=== PATIENT | female | born 1960 | race Caucasian/White ===

== ENCOUNTER 2017-08-31 09:47 | Outpatient (RCR) | payer OTHER, SELFPAY ==
[2017-08-23 01:23] VITALS: BP 139/85; PULSE 95; RESP 18; TEMP 37; BMI 29.1
[2017-08-31 11:08] VITALS: BP 125/69; PULSE 100; RESP 16; TEMP 37.6; BMI 29.1
--- NOTE | 2017-08-31 23:42 | PCM.WC.PN ---
Type of Wound Date of Service: 08/31/17 Chief Complaint: Nonhealing ulcer left lateral leg. History of Wound: 57 year old woman presents with a nonhealing ulcer left lateral leg. She denies any trauma. She denies any fever. She denies any recent infection. She does have a history of occasional swelling in her lower extremities. She had a wound culture done at her visit on 08/17/17. It showed MRSE and she was started on Levaquin. She also has complaints of some dermatitis around the ulceration. Just anterior to the ulceration is another area of skin breakdown that could be related to the dermatitis or from the dressing itself. Progress of Wound: Slightly improved. - Physical Exam Vital Signs Temp Pulse Resp BP 99.6 F H 100 16 125/69 H 08/31/17 11:08 08/31/17 11:08 08/31/17 11:08 08/31/17 11:08 Wound Measurements and Assessment REILLY - Nurse 1 - General Ulcer Measurement Start: 08/31/17 11:07 Freq: Status: Active Protocol: Activity Type Activity Date Activity User E-Sign Co-Sign Detail Recorded Client Recorded Date Recorded By Document 08/31/17 11:08 [facility] [id number] 08/31/17 11:22 [facility] 08/31/17 11:08 Wound Center Nurse 1 [Ulcer Assessment Protocol: WC.WD.LOC] #3- LT BANKS -Combined with other wound No -Current Size (cm) - Length 0.5 -Current Size (cm) - Width 0.8 -Current Size (cm) - Depth 0.1 -Total Square Cm 0.40 -Date of Last Picture (Recall this 08/31/17 field) -Photo Taken Yes -Epithelialization None Present -Tunneling No -Undermining/Tunneling No -Exudate Amt None Present (0 %) -Wound Margin Distinct, Outline Attached -Granulation Amt Large (67-100%) -Granulation Quality Red -Slough/Fibrin No -Necrosis Amt None Present (0 %) -Structure Exposed None/Limited to Skin Breakdown -Texture (Adelina-wound Skin Appearance) Scarring -Moisture (Adelina-wound Skin Appearance Dry/Scaly ) -Color (Adelina-wound Skin Appearance) Assessed -Temperature (Adelina-wound Skin No Abnormality Appearance) (Pt Warm) -Tenderness on Palpation (Adelina-wound Yes Skin Appearance) -Ulcer Cleansing Rinsed/ Irrigated with Saline -Foul Odor after Cleansing No -Anesthetic Used 4% Lidocaine Solution #1- LT LATERAL BANKS -Combined with other wound No -Current Size (cm) - Length 0.6 -Current Size (cm) - Width 0.6 -Current Size (cm) - Depth 0.1 -Total Square Cm 0.36 -Epithelialization Medium 34-66% -Tunneling No -Undermining/Tunneling No -Exudate Amt Small (1-33%) -Exudate Type Serosanguineous -Wound Margin Distinct, Outline Attached -Granulation Amt Large (67-100%) -Granulation Quality Red -Slough/Fibrin No -Structure Exposed N/A -Texture (Adelina-wound Skin Appearance) Scarring -Moisture (Adelina-wound Skin Appearance Maceration ) -Color (Adelina-wound Skin Appearance) No Abnormality -Temperature (Adelina-wound Skin No Abnormality Appearance) (Pt Warm) -Tenderness on Palpation (Adelina-wound No Skin Appearance) -Ulcer Cleansing Rinsed/ Irrigated with Saline -Foul Odor after Cleansing No -Anesthetic Used 4% Lidocaine Solution [Edema Assessment] -Lower Limb Edema Present Yes -Left Calf (cm) 36.9 -Left Ankle (cm) 25.5 WC - Nurse 2 - General Ulcer CM Notes Start: 08/31/17 11:07 Freq: Status: Active Protocol: Activity Type Activity Date Activity User E-Sign Co-Sign Detail Recorded Client Recorded Date Recorded By Document 08/31/17 11:44 JOHNNA [id number] 08/31/17 11:47 JOHNNA 08/31/17 11:44 Wound Center Nurse 2 [Procedure/Treatment] #3- LT BANKS -Time 11:46 -Correct Patient Yes -Correct Side, Site, Position Yes -Correct Procedure Yes -Procedure Performed Yes -Type of Procedure Debridement -Clinical Debridement Subcutaneous -Post Debridement Size (cm) - Length 0.6 -Post Debridement Size (cm) - Width 0.8 -Post Debridement Size (cm) - Depth 0.1 -Total Square Cm 0.48 -Wound/Ulcer Outcome Not Healed -Ulcer Cleansing Rinsed/ Irrigated with Saline -Foul Odor after Cleansing No -Bioengineered Tissue No -Cetacaine [place] No -Bleeding Controlled with Pressure -Treatment Response Procedure Tolerated Well #1- LT LATERAL BANKS -Time 11:46 -Correct Patient Yes -Correct Side, Site, Position Yes -Correct Procedure Yes -Procedure Performed Yes -Type of Procedure Debridement -Clinical Debridement Subcutaneous -Post Debridement Size (cm) - Length 0.7 -Post Debridement Size (cm) - Width 0.6 -Post Debridement Size (cm) - Depth 0.1 -Total Square Cm 0.42 -Wound/Ulcer Outcome Not Healed -Ulcer Cleansing Rinsed/ Irrigated with Saline -Foul Odor after Cleansing No -Bioengineered Tissue No -Cetacaine [place] No -Bleeding Controlled with Pressure -Treatment Response Procedure Tolerated Well [See Physician Procedure note for Specifics] Pain Scale: 0-10 Numeric [Pain] -Is Patient Pain Free? Yes Debridement Note Post-Debridement Measurements/Treatment WC - Nurse 2 - General Ulcer CM Notes Start: 08/31/17 11:07 Freq: Status: Active Protocol: Activity Type Activity Date Activity User E-Sign Co-Sign Detail Recorded Client Recorded Date Recorded By Document 08/31/17 11:44 [id number] 08/31/17 11:47 08/31/17 11:44 Wound Center Nurse 2 #3- LT BANKS -Time 11:46 -Correct Patient Yes -Correct Side, Site, Position Yes -Correct Procedure Yes -Procedure Performed Yes -Type of Procedure Debridement -Clinical Debridement Subcutaneous -Post Debridement Size (cm) - Length 0.6 -Post Debridement Size (cm) - Width 0.8 -Post Debridement Size (cm) - Depth 0.1 -Total Square Cm 0.48 -Wound/Ulcer Outcome Not Healed -Ulcer Cleansing Rinsed/ Irrigated with Saline -Foul Odor after Cleansing No -Bioengineered Tissue No -Cetacaine [place] No -Bleeding Controlled with Pressure -Treatment Response Procedure Tolerated Well #1- LT LATERAL BANKS -Time 11:46 -Correct Patient Yes -Correct Side, Site, Position Yes -Correct Procedure Yes -Procedure Performed Yes -Type of Procedure Debridement -Clinical Debridement Subcutaneous -Post Debridement Size (cm) - Length 0.7 -Post Debridement Size (cm) - Width 0.6 -Post Debridement Size (cm) - Depth 0.1 -Total Square Cm 0.42 -Wound/Ulcer Outcome Not Healed -Ulcer Cleansing Rinsed/ Irrigated with Saline -Foul Odor after Cleansing No -Bioengineered Tissue No -Cetacaine [place] No -Bleeding Controlled with Pressure -Treatment Response Procedure Tolerated Well Pain Scale: 0-10 Numeric Is Patient Pain Free? Yes Wound debrided: #1 Left lateral leg. Laterality: Left Wound Grade/Stage: 2. Type of Debridement: Excisional debridement Anesthesia Used: 4% Lidocaine Solution Depth: Down to and including healthy tissue, in the subcutaneous layer Percentage of wound debrided: 100 Instrument Used: 5mm curette Tissue Removed: subcutaneous tissue. Severity: Fat Layer Exposed Amount of bleeding with debridement: Mild Bleeding Controlled with: Pressure Patient tolerated procedure well - Additional Wound Wound debrided: #3 Left anterior leg. Laterality: Left Wound Grade/Stage: 2. Type of Debridement: Excisional debridement Anesthesia Used: 4% Lidocaine Solution Depth: Down to and including healthy tissue, in the subcutaneous layer Percentage of wound debrided: 100 Instrument Used: 5mm curette Tissue Removed: subcutaneous tissue. Severity: Fat Layer Exposed Amount of bleeding with debridement: Mild Bleeding Controlled with: Pressure Patient tolerated procedure: Patient tolerated procedure well Assessment/Plan Assessment: 1. Nonhealing ulcer left lateral leg. 2. Nonhealing ulcer left anterior leg. Plan: Continue Silver dressing changes daily. Is having some periwound dermatitis and will write a script for some Benadryl. Has a new onset ulceration on the anterior aspect. Could be related to the dressing. Continue tubigrip to help with the swelling. Xray was normal. A wound culture was done at her last visit on 08/17/17 and it showed MRSE. She was placed on Levaquin. Anticipate increased metabolic demands from the ulcer. Encourage nutritional supplementation with protein to help the healing process. She does have clinical swelling suggestive of venous insufficiency. After healing has occurred and with compression for 6 months, she can be evaluated for possible laser ablation. At present will check an arterial doppler study and a venous doppler study to look for any vascular issues. Followup 3 weeks.
--- NOTE | 2017-09-10 09:56 | VDLE_ITS ---
Reason For Study: Swelling and ulceration RIGHT LEFT GSV is normal. GSV is normal. CFV is compressible, spontaneous, phasic, CFV is compressible, spontaneous, phasic, competent and demonstrates normal competent, and demonstrates normal augmentation. augmentation. FV is compressible, spontaneous, phasic, FV is compressible, spontaneous, phasic, competent and demonstrates normal competent and demonstrates normal augmentation. augmentation. POP V is compressible, spontaneous, phasic, POP V is compressible, spontaneous, phasic, competent and demonstrates normal competent and demonstrates normal augmentation. augmentation. T/P Trunk is compressible. T/P Trunk is compressible. PTV is compressible. PTV is compressible. RT PerV is compressible. LT PerV is compressible. SFJ s competent SFJ is competent GSV is INCOMPETENT with reflux greater GSV is INCOMPETENT with reflux greater than .5 sec and diameter of .30 x .28 cm than .5 sec and diameter of .38 x .38 cm SSV is INCOMPETENT with reflux greater SSV is competent. than .5 sec and diameter of .30 x .28 cm. Procedure Exam performed in department. A preliminary report was called and/or faxed to [facility]. Interpretation Summary Deep veins of the lower extremities are bilaterally patent and compressible segmentally. There is no evidence of deep vein thrombosis on either side. Valvular competence appears intact within the proximal deep venous systems bilaterally. The greater saphenous veins appear bilaterally patent and compressible segmentally. Sapheno-femoral junctions are bilaterally competent . Segmental valvular incompetence is noted within the greater saphenous veins bilaterally. The right small saphenous vein is patent and incompetent. The left small saphenous vein is patent and competent. Ordering Physician: Chase Gray Performed By: Marybeth Canchola RVT
--- NOTE | 2017-09-13 12:28 | LEAS_ITS ---
Arterial Study - Arterial Study Arterial Study: This is a 57-year-old female with hypertension who presents with a left lower extremity ulceration. Suspecting the presence of atherosclerotic peripheral arterial occlusive disease, the patient was brought to the noninvasive vascular laboratory at this time for the purpose of bilateral noninvasive lower extremity arterial assessment. Doppler signal assessment was used to evaluate the pulses at ankle level bilaterally. The posterior tibial and dorsalis pedis pulses were triphasic bilaterally. Segmental limb pressures were obtained at ankle level bilaterally. The right ankle pressure, as determined the posterior tibial pulse, was measured at 139 mmHg. The right ankle pressure, as determined by dorsalis pedis pulse, was measured at 135 mmHg. The left ankle pressure, as determined the posterior tibial pulse, was measured at 155 mmHg. The left ankle pressure, as determined by dorsalis pedis pulse, was measured at 136 mmHg. Pulse-volume recordings were obtained bilaterally and segmentally. Waveform amplitudes appeared to be satisfactory at all levels bilaterally, including low thigh, calf, ankle, and digital levels. Resting ankle-brachial indices were calculated bilaterally. The resting right ankle-brachial index was calculated to be 1.03. The resting left ankle- brachial index was calculated to be 1.15. Impression: Based upon the findings of this resting noninvasive lower extremity arterial study, there is no evidence of significant atherosclerotic peripheral arterial occlusive disease in the lower extremities bilaterally. Triphasic waveforms are noted at ankle level bilaterally. Resting ankle-brachial indices were bilaterally normal. In summary, this represents a normal resting noninvasive lower extremity arterial study bilaterally.
== END 2017-09-20 23:59 ==
LOC: WC 09:47
PROVIDERS: Family Provider Nurse Practitioner; PCP Nurse Practitioner; Visit Provider Surgery
DX: L97.822 Non-pressure chronic ulcer of other part of left lower leg with fat layer exposed (principal); L30.9 Dermatitis, unspecified; M79.89 Other specified soft tissue disorders; I83.028 Varicose veins of left lower extremity with ulcer other part of lower leg; I10 Essential (primary) hypertension; R60.0 Localized edema; I83.891 Varicose veins of right lower extremity with other complications
CPT/HCPCS: 11042; 93923; 93970

== ENCOUNTER 2017-10-20 08:00 | Outpatient (RCR) | payer OTHER, SELFPAY ==
[2017-09-21 01:29] VITALS: BP 125/69; PULSE 100; RESP 16; TEMP 37.6; BMI 29.1
[2017-09-22 09:43] VITALS: BP 122/74; PULSE 131; RESP 18; TEMP 37.4; BMI 29.1
--- NOTE | 2017-09-22 18:20 | PCM.WC.PN ---
Type of Wound Date of Service: 09/22/17 Chief Complaint: Nonhealing ulcers left leg. History of Wound: 57 year old woman presents with a nonhealing ulcer left lateral leg. She denies any trauma. She denies any fever. She denies any recent infection. She does have a history of occasional swelling in her lower extremities. She had a wound culture done at her visit on 08/17/17. It showed MRSE and she was started on Levaquin and has finished them. She has been using Silver dressing changes daily along with a tubigrip for compression. She had a LEAS study on 09/13/17 and it showed a normal resting noninvasive lower extremity arterial study bilaterally. Today she denies any fever. Her appetite is good. Progress of Wound: Healed. - Physical Exam Vital Signs Temp Pulse Resp BP 99.3 F H 131 H 18 122/74 H 09/22/17 09:43 09/22/17 09:43 09/22/17 09:43 09/22/17 09:43 General: Alert, Oriented x3 HEENT: PERRLA, EOMI Oral: Moist Mucosa Neck: Supple Lungs: Clear to auscultation Cardiovascular: Regular rate, Regular Rhythm Extremities: No clubbing, No cyanosis, Edema - mild edema in lower extremities., Peripheral Pulses Normal Skin: Ulcer/ Wound - the ulcers have healed. Wound Measurements and Assessment - Nurse 1 - General Ulcer Measurement Start: 09/22/17 09:43 Freq: Status: Active Protocol: Activity Type Activity Date Activity User E-Sign Co-Sign Detail Recorded Client Recorded Date Recorded By Document 09/22/17 09:43 JOHNNA [id number] 09/22/17 09:46 JOHNNA 09/22/17 09:43 Wound Center Nurse 1 [Ulcer Assessment Protocol: REILLY.WD.LOC] #3- LT BANKS -Combined with other wound No -Current Size (cm) - Length 0 -Current Size (cm) - Width 0 -Current Size (cm) - Depth 0 -Total Square Cm 0 -Photo Taken Yes #1- LT LATERAL BANKS -Combined with other wound No -Current Size (cm) - Length 0 -Current Size (cm) - Width 0 -Current Size (cm) - Depth 0 -Total Square Cm 0 -Photo Taken Yes [Edema Assessment] -Lower Limb Edema Present Yes -Left Calf (cm) 36.5 -Left Ankle (cm) 24.2 - Nurse 2 - General Ulcer CM Notes Start: 09/22/17 09:43 Freq: Status: Active Protocol: Activity Type Activity Date Activity User E-Sign Co-Sign Detail Recorded Client Recorded Date Recorded By Document 09/22/17 09:52 JOHNNA [id number] 09/22/17 09:57 09/22/17 09:52 Pain Scale: 0-10 Numeric [Pain] -Is Patient Pain Free? Yes Neurological: Cranial nerves II-XII grossly intact Psych/Mental Status: Normal Affect, Appropriate Debridement Note Post-Debridement Measurements/Treatment WC - Nurse 2 - General Ulcer CM Notes Start: 09/22/17 09:43 Freq: Status: Active Protocol: Activity Type Activity Date Activity User E-Sign Co-Sign Detail Recorded Client Recorded Date Recorded By Document 09/22/17 09:52 JOHNNA [id number] 09/22/17 09:57 09/22/17 09:52 Pain Scale: 0-10 Numeric Is Patient Pain Free? Yes Wound debrided: #1 Left lateral leg. Laterality: Left Wound Grade/Stage: 2. No debridement was completed today - The ulcer has healed. - Additional Wound Wound debrided: #3 Left anterior leg. Laterality: Left Wound Grade/Stage: 2. Patient tolerated procedure: - - No debridement was done today as the ulcer has healed. Assessment/Plan Assessment: 1. Ulcer left lateral leg, healed. 2. Ulcer left anterior leg, healed. 3. Venous insufficiency bilateral legs. Plan: The ulcers have healed. Will change the tubigrip to compression stockings because of her venous insufficiency. She can followup with Dr. Davis in 6 months for evaluation for possible laser ablation. A wound culture was done at her visit on 08/17/17 and it showed MRSE. She was placed on Levaquin and has finished them. She had an arterial doppler study on 09/13/17 which was normal. Followup on an as needed basis.
--- NOTE | 2017-09-23 23:02 | PN.PCM_ITS ---
Type of Wound Date of Service: 09/22/17 Chief Complaint: Nonhealing ulcers left leg. History of Wound: 57 year old woman presents with a nonhealing ulcer left lateral leg. She denies any trauma. She denies any fever. She denies any recent infection. She does have a history of occasional swelling in her lower extremities. She had a wound culture done at her visit on 08/17/17. It showed MRSE and she was started on Levaquin and has finished them. She has been using Silver dressing changes daily along with a tubigrip for compression. She had a LEAS study on 09/13/17 and it showed a normal resting noninvasive lower extremity arterial study bilaterally. Today she denies any fever. Her appetite is good. Progress of Wound: Healed. - Physical Exam Vital Signs Temp Pulse Resp BP 99.3 F H 131 H 18 122/74 H 09/22/17 09:43 09/22/17 09:43 09/22/17 09:43 09/22/17 09:43 General: Alert, Oriented x3 HEENT: PERRLA, EOMI Oral: Moist Mucosa Neck: Supple Lungs: Clear to auscultation Cardiovascular: Regular rate, Regular Rhythm Extremities: No clubbing, No cyanosis, Edema - mild edema in lower extremities. , Peripheral Pulses Normal Skin: Ulcer/ Wound - the ulcers have healed. Wound Measurements and Assessment - Nurse 1 - General Ulcer Measurement Start: 09/22/17 09:43 Freq: Status: Active Protocol: Activity Type Activity Date Activity User E-Sign Co-Sign Detail Recorded Client Recorded Date Recorded By Document 09/22/17 09:43 JOHNNA [id number] 09/22/17 09:46 JOHNNA 09/22/17 09:43 Wound Center Nurse 1 [Ulcer Assessment Protocol: REILLY.WD.LOC] #3- LT BANKS -Combined with other wound No -Current Size (cm) - Length 0 -Current Size (cm) - Width 0 -Current Size (cm) - Depth 0 -Total Square Cm 0 -Photo Taken Yes #1- LT LATERAL BANKS -Combined with other wound No -Current Size (cm) - Length 0 -Current Size (cm) - Width 0 -Current Size (cm) - Depth 0 -Total Square Cm 0 -Photo Taken Yes [Edema Assessment] -Lower Limb Edema Present Yes -Left Calf (cm) 36.5 -Left Ankle (cm) 24.2 - Nurse 2 - General Ulcer CM Notes Start: 09/22/17 09:43 Freq: Status: Active Protocol: Activity Type Activity Date Activity User E-Sign Co-Sign Detail Recorded Client Recorded Date Recorded By Document 09/22/17 09:52 JOHNNA [id number] 09/22/17 09:57 09/22/17 09:52 Pain Scale: 0-10 Numeric [Pain] -Is Patient Pain Free? Yes Neurological: Cranial nerves II-XII grossly intact Psych/Mental Status: Normal Affect, Appropriate Debridement Note Post-Debridement Measurements/Treatment WC - Nurse 2 - General Ulcer CM Notes Start: 09/22/17 09:43 Freq: Status: Active Protocol: Activity Type Activity Date Activity User E-Sign Co-Sign Detail Recorded Client Recorded Date Recorded By Document 09/22/17 09:52 JOHNNA [id number] 09/22/17 09:57 09/22/17 09:52 Pain Scale: 0-10 Numeric Is Patient Pain Free? Yes Wound debrided: #1 Left lateral leg. Laterality: Left Wound Grade/Stage: 2. No debridement was completed today - The ulcer has healed. - Additional Wound Wound debrided: #3 Left anterior leg. Laterality: Left Wound Grade/Stage: 2. Patient tolerated procedure: - - No debridement was done today as the ulcer has healed. Assessment/Plan Assessment: 1. Ulcer left lateral leg, healed. 2. Ulcer left anterior leg, healed. 3. Venous insufficiency bilateral legs. Plan: The ulcers have healed. Will change the tubigrip to compression stockings because of her venous insufficiency. She can followup with Dr. Davis in 6 months for evaluation for possible laser ablation. A wound culture was done at her visit on 08/17/17 and it showed MRSE. She was placed on Levaquin and has finished them. She had an arterial doppler study on 09/13/17 which was normal. Followup on an as needed basis.
[2017-10-20 08:15] VITALS: BP 115/71; PULSE 101; RESP 18; TEMP 36.9; BMI 29.1
--- NOTE | 2017-10-20 09:17 | PCM.WC.HP ---
(1) Venous insufficiency of both lower extremities Status: Chronic Current Visit: Yes Code(s): I87.2 - Venous insufficiency (chronic) (peripheral) (2) Leg pain, bilateral Status: Chronic Current Visit: Yes Code(s): M79.604 - Pain in right leg; M79.605 - Pain in left leg (3) Swelling of lower extremity Status: Chronic Current Visit: Yes Code(s): M79.89 - Other specified soft tissue disorders (4) Edema of leg Status: Chronic Current Visit: Yes Code(s): R60.0 - Localized edema (5) Hypertension Status: Chronic Current Visit: No Qualifiers: Hypertension type: essential hypertension Qualified Code(s): I10 - Essential (primary) hypertension Code(s): I10 - Essential (primary) hypertension (6) Benign breast disease Status: Chronic Current Visit: No Code(s): N64.9 - Disorder of breast, unspecified (7) Overweight (BMI 25.0-29.9) Status: Chronic Current Visit: No Code(s): E66.3 - Overweight History of Present Illness Date of Service: 10/20/17 Chief Complaint: Chronic venous insufficiency with pain, discomfort, swelling, and edema in the lower extremities bilaterally History of Wound: This is a 57-year-old female who initially presented with a traumatic wound on the left lateral calf. It was the result of a scratch from a dog. It occurred in June 2017. The patient was treated by conservative means, which include implementation of graduated compression stockings of 20-30 mmHg compression, knee-high length. Her wound was treated topically by the use of Aquacel silver. Her wound subsequently healed in early September 2017. During the course of her evaluation, the patient has had a battery of diagnostic studies. A noninvasive lower extremity arterial study performed on September 10, 2017, was normal, with triphasic waveforms at ankle level bilaterally and normal anklebrachial indices bilaterally. An x-ray of the left distal lower extremity was unremarkable. A wound culture on August 17, 2017, was positive for Staphylococcus epidermidis, and the patient was treated with a course of oral antibiotics for 8 days. The patient's venous duplex examination, performed on September 10, 2017, revealed incompetence of the right great saphenous vein, the right small saphenous vein, and the left great saphenous vein. Patient is referred for evaluation relative to her chronic venous disease. She sleeps on a flat mattress at night. She experiences she leads an active lifestyle. She complains of aching and discomfort in her lower extremities, particularly at the end of each day. Patient has no history of lower extremity thrombophlebitis. Past Medical History Past Medical History: Chronic Problems Venous insufficiency of both lower extremities (Chronic) Leg pain, bilateral (Chronic) Swelling of lower extremity (Chronic) Edema of leg (Chronic) Hypertension (Chronic) Benign breast disease (Chronic) Overweight (BMI 25.0-29.9) (Chronic) Past Medical History: The patient has a history of hypertension and benign breast disease. Her history is negative for myocardial infarction, congestive heart failure, cerebrovascular accident, diabetes mellitus, cancer, pulmonary disease, renal disease, hyperlipidemia, and thyroid disease. Surgical History: - - Patient has a history of hysterectomy in 1998. She is a Ab0. Allergies/Adverse Reactions: Allergies Sulfa (Sulfonamide Antibiotics) Allergy (Verified 04/15/15 22:30) Rash Home Medications: Ambulatory Orders Medication Instructions Recorded Flaxseed Oil 1,000 mg PO DAILY 08/17/17 Irbesartan [Avapro] 150 mg PO DAILY 08/17/17 - Family History Maternal - - Patient's father is 85 years of age and healthy. Patient's mother is 80 years of age with a history of schizophrenia and depression. Social History: The patient denies use of tobacco products. She consumes alcoholic beverages rarely. She is . 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 Lives: Spouse/ Significant Other Smoking Status: Never smoker Tobacco Use: Non-smoker Alcohol: Rare Drugs: None Review of Systems Constitutional: Denies: Chills, Fever, Weight Change Eyes: Denies: Pain, Vision Change HEENT: Denies: Difficulty Hearing, Difficulty Swallowing, Sinus Congestion Cardiovascular: Denies: Chest Pain, Palpitations Respiratory: Denies: Cough, Shortness of Breath Gastrointestinal: Denies: Diarrhea, Nausea, Vomiting Genitourinary: Denies: Dysuria, Hematuria Endocrine: Denies: Heat/ Cold Intolerance, Polydipsia, Polyuria Hematologic/ Lymphatic: Denies: Easy Bruising, Easy Bleeding - Physical Exam Vital Signs Temp Pulse Resp BP 98.4 F 101 H 18 115/71 10/20/17 08:15 10/20/17 08:15 01/30/18 08:15 10/20/17 08:15 General: Alert, Oriented x3, Cooperative, No apparent distress, Well developed, Well nourished HEENT: Atraumatic, PERRLA, EOMI, Normocephalic Oral: Moist Mucosa, No Gingival or Mucosal Lesions/ Ulcerations Neck: Supple, No JVD, Negative Carotid Bruits, Negative Hepatojugular Reflux, No Nodes, No Nuchal Rigidity, Trachea Midline Lungs: Clear to auscultation, Normal air movement, No rhonchi, No wheeze, No rales Cardiovascular: Regular rate, Regular Rhythm, Normal S1, Normal S2, No murmurs Abdomen: Soft, Non Tender, Non-Distended Extremities: No clubbing, No cyanosis, No edema, No Calf Tenderness, - - The wound on the left lateral calf for which the patient has been recently treated is now completely healed and epithelialized. There are a few scattered telangiectasias in the lower extremities bilaterally. There is no significant swelling or edema. Several ecchymotic areas are noted bilaterally, from admitted blunt trauma. Skin: No rashes, No breakdown Wound Measurements and Assessment WC - Nurse 1 - General Ulcer Measurement Start: 09/22/17 09:43 Freq: Status: Active Protocol: Activity Type Activity Date Activity User E-Sign Co-Sign Detail Recorded Client Recorded Date Recorded By Document 10/20/17 08:15 [id number] 10/20/17 08:17 10/20/17 08:15 Wound Center Nurse 1 [Edema Assessment] -Lower Limb Edema Present Yes -Right Calf (cm) 36.3 -Right Ankle (cm) 22.3 -Left Calf (cm) 36.8 -Left Ankle (cm) 23.2 - Nurse 2 - General Ulcer CM Notes Start: 09/22/17 09:43 Freq: Status: Active Protocol: Activity Type Activity Date Activity User E-Sign Co-Sign Detail Recorded Client Recorded Date Recorded By Document 10/20/17 08:59 DV [id number] 10/20/17 09:04 DV 10/20/17 08:59 Wound Center Nurse 2 [Procedure/Treatment] #4 Bilateral Edema -Time 09:01 -Correct Patient Yes -Procedure Performed No [See Physician Procedure note for Specifics] Pain Scale: 0-10 Numeric [Pain] -Is Patient Pain Free? Yes Musculoskeletal: No Muscle Wasting Neurological: Cranial nerves II-XII grossly intact, Neuro grossly intact Psych/Mental Status: Normal Affect, Appropriate, Alert and oriented to time, place, person, mood and affect Debridement Note Post-Debridement Measurements/Treatment WC - Nurse 2 - General Ulcer CM Notes Start: 09/22/17 09:43 Freq: Status: Active Protocol: Activity Type Activity Date Activity User E-Sign Co-Sign Detail Recorded Client Recorded Date Recorded By Document 09/22/17 09:52 [id number] 09/22/17 09:57 Document 10/20/17 08:59 DV [id number] 10/20/17 09:04 DV 09/22/17 10/20/17 09:52 08:59 Wound Center Nurse 2 #4 Bilateral Edema -Time 09:01 -Correct Patient Yes -Procedure Performed No Pain Scale: 0-10 Numeric Is Patient Pain Free? Yes Yes No debridement was completed today Assessment/Plan Active Problems Venous insufficiency of both lower extremities (Chronic) Leg pain, bilateral (Chronic) Swelling of lower extremity (Chronic) Edema of leg (Chronic) Assessment: This is a 57-year-old female who presents for evaluation relative to her chronic venous disease and associated symptoms. She leads an active lifestyle. She sleeps on a flat mattress at night. She complains of pain, discomfort, and swelling in her lower extremities at the end of each day. She has been recently wearing graduated compression stockings of 20-30 mmHg compression, knee-high length. The traumatic wound on her left lateral calf, for which the patient has been recently treated, is now completely healed. A venous duplex examination, recently performed, reveals evidence of chronic venous insufficiency in the superficial veins of the patient's lower extremities. Plan: We are to implement conservative treatment measures relative to the patient's chronic venous disease in her lower extremities. A lengthy discussion has been undertaken as to the appropriate measures to be employed. Patient is to elevate her legs as much as possible. Elevation is to be to heart level or higher. This is to be accomplished even during daytime hours, when possible. She is to avoid prolonged idle standing and sitting. Activity has been encouraged. Weight optimization has also been recommended. The use of anti-inflammatory medications has been advised, when necessary. The patient is to continue wearing graduated compression stockings of 20-30 mmHg compression, which she currently possesses. Patient will be reevaluated in approximately 3 months to determine her status, and to evaluate whether her symptoms have been controlled with the conservative measures employed. The patient is not a smoker. Influenza vaccine was not administered today. Patient weighs 175 pounds. She stands 5 feet 5 inches tall. Her BMI is 29.1, which places her in the overweight category. Weight loss has been recommended, and she has been advised to collaborate with her primary care physician in this regard.
--- NOTE | 2017-10-20 09:28 | HP.PCM_ITS ---
(1) Venous insufficiency of both lower extremities Status: Chronic Current Visit: Yes Code(s): I87.2 - Venous insufficiency ( chronic) (peripheral) (2) Leg pain, bilateral Status: Chronic Current Visit: Yes Code(s): M79.604 - Pain in right leg; M79.605 - Pain in left leg (3) Swelling of lower extremity Status: Chronic Current Visit: Yes Code(s): M79.89 - Other specified soft tissue disorders (4) Edema of leg Status: Chronic Current Visit: Yes Code(s): R60.0 - Localized edema (5) Hypertension Status: Chronic Current Visit: No Qualifiers: Hypertension type: essential hypertension Qualified Code(s): I10 - Essential (primary) hypertension Code(s): I10 - Essential (primary) hypertension (6) Benign breast disease Status: Chronic Current Visit: No Code(s): N64.9 - Disorder of breast, unspecified (7) Overweight (BMI 25.0-29.9) Status: Chronic Current Visit: No Code(s): E66.3 - Overweight History of Present Illness Date of Service: 10/20/17 Chief Complaint: Chronic venous insufficiency with pain, discomfort, swelling, and edema in the lower extremities bilaterally History of Wound: This is a 57-year-old female who initially presented with a traumatic wound on the left lateral calf. It was the result of a scratch from a dog. It occurred in June 2017. The patient was treated by conservative means, which include implementation of graduated compression stockings of 20-30 mmHg compression, knee-high length. Her wound was treated topically by the use of Aquacel silver. Her wound subsequently healed in early September 2017. During the course of her evaluation, the patient has had a battery of diagnostic studies. A noninvasive lower extremity arterial study performed on September 10, 2017, was normal, with triphasic waveforms at ankle level bilaterally and normal ankle?brachial indices bilaterally. An x-ray of the left distal lower extremity was unremarkable. A wound culture on August 17, 2017, was positive for Staphylococcus epidermidis, and the patient was treated with a course of oral antibiotics for 8 days. The patient's venous duplex examination, performed on September 10, 2017, revealed incompetence of the right great saphenous vein, the right small saphenous vein, and the left great saphenous vein. Patient is referred for evaluation relative to her chronic venous disease. She sleeps on a flat mattress at night. She experiences she leads an active lifestyle. She complains of aching and discomfort in her lower extremities, particularly at the end of each day. Patient has no history of lower extremity thrombophlebitis. Past Medical History Past Medical History: Chronic Problems Venous insufficiency of both lower extremities (Chronic) Leg pain, bilateral (Chronic) Swelling of lower extremity (Chronic) Edema of leg (Chronic) Hypertension (Chronic) Benign breast disease (Chronic) Overweight (BMI 25.0-29.9) (Chronic) Past Medical History: The patient has a history of hypertension and benign breast disease. Her history is negative for myocardial infarction, congestive heart failure, cerebrovascular accident, diabetes mellitus, cancer, pulmonary disease, renal disease, hyperlipidemia, and thyroid disease. Surgical History: - - Patient has a history of hysterectomy in 1998. She is a Ab0. Allergies/Adverse Reactions: Allergies Sulfa (Sulfonamide Antibiotics) Allergy (Verified 04/15/15 22:30) Rash Home Medications: Ambulatory Orders Medication Instructions Recorded Flaxseed Oil 1,000 mg PO DAILY 08/17/17 Irbesartan [Avapro] 150 mg PO DAILY 08/17/17 - Family History Maternal - - Patient's father is 85 years of age and healthy. Patient's mother is 80 years of age with a history of schizophrenia and depression. Social History: The patient denies use of tobacco products. She consumes alcoholic beverages rarely. She is . 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 Lives: Spouse/ Significant Other Smoking Status: Never smoker Tobacco Use: Non-smoker Alcohol: Rare Drugs: None Review of Systems Constitutional: Denies: Chills, Fever, Weight Change Eyes: Denies: Pain, Vision Change HEENT: Denies: Difficulty Hearing, Difficulty Swallowing, Sinus Congestion Cardiovascular: Denies: Chest Pain, Palpitations Respiratory: Denies: Cough, Shortness of Breath Gastrointestinal: Denies: Diarrhea, Nausea, Vomiting Genitourinary: Denies: Dysuria, Hematuria Endocrine: Denies: Heat/ Cold Intolerance, Polydipsia, Polyuria Hematologic/ Lymphatic: Denies: Easy Bruising, Easy Bleeding - Physical Exam Vital Signs Temp Pulse Resp BP 98.4 F 101 H 18 115/71 10/20/17 08:15 10/20/17 08:15 10/20/17 08:15 10/20/17 08:15 General: Alert, Oriented x3, Cooperative, No apparent distress, Well developed, Well nourished HEENT: Atraumatic, PERRLA, EOMI, Normocephalic Oral: Moist Mucosa, No Gingival or Mucosal Lesions/ Ulcerations Neck: Supple, No JVD, Negative Carotid Bruits, Negative Hepatojugular Reflux, No Nodes, No Nuchal Rigidity, Trachea Midline Lungs: Clear to auscultation, Normal air movement, No rhonchi, No wheeze, No rales Cardiovascular: Regular rate, Regular Rhythm, Normal S1, Normal S2, No murmurs Abdomen: Soft, Non Tender, Non-Distended Extremities: No clubbing, No cyanosis, No edema, No Calf Tenderness, - - The wound on the left lateral calf for which the patient has been recently treated is now completely healed and epithelialized. There are a few scattered telangiectasias in the lower extremities bilaterally. There is no significant swelling or edema. Several ecchymotic areas are noted bilaterally, from admitted blunt trauma. Skin: No rashes, No breakdown Wound Measurements and Assessment WC - Nurse 1 - General Ulcer Measurement Start: 09/22/17 09:43 Freq: Status: Active Protocol: Activity Type Activity Date Activity User E-Sign Co-Sign Detail Recorded Client Recorded Date Recorded By Document 10/20/17 08:15 [id number] 10/20/17 08:17 10/20/17 08:15 Wound Center Nurse 1 [Edema Assessment] -Lower Limb Edema Present Yes -Right Calf (cm) 36.3 -Right Ankle (cm) 22.3 -Left Calf (cm) 36.8 -Left Ankle (cm) 23.2 - Nurse 2 - General Ulcer CM Notes Start: 09/22/17 09:43 Freq: Status: Active Protocol: Activity Type Activity Date Activity User E-Sign Co-Sign Detail Recorded Client Recorded Date Recorded By Document 10/20/17 08:59 DV [id number] 10/20/17 09:04 DV 10/20/17 08:59 Wound Center Nurse 2 [Procedure/Treatment] #4 Bilateral Edema -Time 09:01 -Correct Patient Yes -Procedure Performed No [See Physician Procedure note for Specifics] Pain Scale: 0-10 Numeric [Pain] -Is Patient Pain Free? Yes Musculoskeletal: No Muscle Wasting Neurological: Cranial nerves II-XII grossly intact, Neuro grossly intact Psych/Mental Status: Normal Affect, Appropriate, Alert and oriented to time, place, person, mood and affect Debridement Note Post-Debridement Measurements/Treatment WC - Nurse 2 - General Ulcer CM Notes Start: 09/22/17 09:43 Freq: Status: Active Protocol: Activity Type Activity Date Activity User E-Sign Co-Sign Detail Recorded Client Recorded Date Recorded By Document 09/22/17 09:52 [id number] 09/22/17 09:57 Document 10/20/17 08:59 DV [id number] 10/20/17 09:04 DV 09/22/17 10/20/17 09:52 08:59 Wound Center Nurse 2 #4 Bilateral Edema -Time 09:01 -Correct Patient Yes -Procedure Performed No Pain Scale: 0-10 Numeric Is Patient Pain Free? Yes Yes No debridement was completed today Assessment/Plan Active Problems Venous insufficiency of both lower extremities (Chronic) Leg pain, bilateral (Chronic) Swelling of lower extremity (Chronic) Edema of leg (Chronic) Assessment: This is a 57-year-old female who presents for evaluation relative to her chronic venous disease and associated symptoms. She leads an active lifestyle. She sleeps on a flat mattress at night. She complains of pain, discomfort, and swelling in her lower extremities at the end of each day. She has been recently wearing graduated compression stockings of 20-30 mmHg compression, knee-high length. The traumatic wound on her left lateral calf, for which the patient has been recently treated, is now completely healed. A venous duplex examination, recently performed, reveals evidence of chronic venous insufficiency in the superficial veins of the patient's lower extremities. Plan: We are to implement conservative treatment measures relative to the patient's chronic venous disease in her lower extremities. A lengthy discussion has been undertaken as to the appropriate measures to be employed. Patient is to elevate her legs as much as possible. Elevation is to be to heart level or higher. This is to be accomplished even during daytime hours, when possible. She is to avoid prolonged idle standing and sitting. Activity has been encouraged. Weight optimization has also been recommended. The use of anti-inflammatory medications has been advised, when necessary. The patient is to continue wearing graduated compression stockings of 20-30 mmHg compression , which she currently possesses. Patient will be reevaluated in approximately 3 months to determine her status, and to evaluate whether her symptoms have been controlled with the conservative measures employed. The patient is not a smoker. Influenza vaccine was not administered today. Patient weighs 175 pounds. She stands 5 feet 5 inches tall. Her BMI is 29.1, which places her in the overweight category. Weight loss has been recommended, and she has been advised to collaborate with her primary care physician in this regard.
== END 2017-10-21 23:59 ==
LOC: WC 08:00
PROVIDERS: Family Provider Nurse Practitioner; PCP Nurse Practitioner; Visit Provider Surgery
DX: I87.2 Venous insufficiency (chronic) (peripheral) (principal); M79.604 Pain in right leg; M79.605 Pain in left leg; M79.89 Other specified soft tissue disorders; R60.0 Localized edema; I10 Essential (primary) hypertension; Z79.899 Other long term (current) drug therapy
CPT/HCPCS: 99212; G0463

== ENCOUNTER → 2017-11-02 07:32 | Outpatient (CLI) | payer OTHER, SELFPAY ==
--- NOTE | 2017-11-02 07:34 | HPBI_ITS ---
MAMMOGRAPHY - BILATERAL SCREENING REASON FOR EXAM: Female, 57 years old. Routine annual screening examination. PERTINENT HISTORY: Grandmother with breast cancer. TECHNIQUE: Digital bilateral breast rochelle (3D mammographic acquisition) in the CC and MLO projections. 2-D mediolateral oblique (MLO) and craniocaudad (CC) views of both breasts were obtained. CAD: Full Field Digital Mammography with Computer Added Detection was performed. COMPARISON: Comparison is made with prior study dated October 06, 2016 and September 03, 2015. FINDINGS: Breast Composition: The breasts are heterogeneously dense, which may obscure small masses. There are no dominant masses or suspicious calcifications. There is a 1.4 cm x 0.9 cm well-defined nodule in the upper lateral portion of the right breast. Correlation with ultrasound is recommended. No other significant abnormalities are identified. HPBI/SCREENING MAMM (CAD), BILAT IMPRESSION: 1.4 cm x 0.9 cm well-defined nodule in the right breast as described. Correlation with ultrasound is recommended. ASSESSMENT CATEGORY: BIRADS Category 0: Incomplete. Need additional imaging evaluation. A letter regarding these results will be sent to the patient by the facility within 30 days. Approximately 10% of breast cancers are not detected by mammography. A normal mammogram should not delay biopsy of a clinically suspicious abnormality. [id number] Electronically Signed: Raul Grimaldo MD at 9:31 EST Tel [phone], Service support ,
== END ==
PROVIDERS: Family Provider Nurse Practitioner; PCP Nurse Practitioner; Visit Provider Nurse Practitioner
DX: Z12.31 Encounter for screening mammogram for malignant neoplasm of breast (principal)
CPT/HCPCS: 77063; 77067

== ENCOUNTER → 2017-11-09 08:32 | Outpatient (CLI) | payer OTHER, SELFPAY ==
--- NOTE | 2017-11-09 08:33 | US_ITS ---
STUDY: ULTRASOUND BREAST - RIGHT REASON FOR EXAM: Female, 57 years old. Abnormal screening mammogram. TECHNIQUE: Axial and longitudinal images of the RIGHT breast were performed with a high resolution ultrasound transducer. COMPARISON: Comparison is made with prior mammogram dated November 02, 2017. FINDINGS: RIGHT Breast: The upper outer quadrant of the right breast was examined by ultrasound. 4 cysts are seen. The largest cyst measures 1.2 cm x 0.7 cm x 0.9 cm. This is at the 9:00 position breast at 4 cm from the nipple. US/Breast Limited Unilateral IMPRESSION: 4 small cysts are seen in the upper-outer quadrant of the breasts. Routine annual mammographic follow-up is recommended. ASSESSMENT CATEGORY: BIRADS Category 2: Benign. A letter regarding these results will be sent to the patient by the facility within 30 days. Electronically Signed: Raul Grimaldo MD at 13:22 EST Tel [phone], Service support ,
== END ==
PROVIDERS: Family Provider Nurse Practitioner; PCP Nurse Practitioner; Visit Provider Nurse Practitioner
DX: R92.8 Other abnormal and inconclusive findings on diagnostic imaging of breast (principal)
CPT/HCPCS: 76642

== ENCOUNTER 2018-01-19 11:17 | Outpatient (RCR) | payer OTHER, SELFPAY | END 2018-02-18 23:59 | LOC: WC 11:17 | PROVIDERS: Family Provider Nurse Practitioner; PCP Nurse Practitioner; Visit Provider Surgery | DX: Z53.9 Procedure and treatment not carried out, unspecified reason (principal) ==

== ENCOUNTER → 2019-06-29 | Outpatient (CLI) | payer OTHER, SELFPAY ==
[2019-06-29 06:31] VITALS: BMI 29.1
== END | disposition home or self-care (01) ==
LOC: LABSPEC 11:33
PROVIDERS: Family Provider Nurse Practitioner; PCP Nurse Practitioner; Referring Provider Physician Assistant; Visit Provider Physician Assistant
DX: J02.9 Acute pharyngitis, unspecified (principal)
CPT/HCPCS: 87070

== ENCOUNTER → 2020-05-17 | Outpatient (CLI) | payer OTHER, SELFPAY ==
[2019-06-29 06:31] VITALS: BMI 29.1
--- NOTE | 2020-05-17 12:37 | BD_ITS ---
STUDY: DUAL ENERGY X-RAY ABSORPTIOMETRY / DXA REASON FOR EXAM: Female, 60 years old. 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 COMPARISON: Comparison is made with prior examination dated 12/19/2015. FINDINGS: Lumbar Spine (L1-L4): g/cm2 (1.178) / T-score (0.0) / Z-score (1.0) Findings are suggestive of normal bone density with a low fracture risk. Left Femur Total: g/cm2 (0.886) / T-score (-1.0) / Z-score (-0.1) Left Femoral Neck: g/cm2 (0.821) / T-score (-1.6) / Z-score (-0.4) Right Femur Total: g/cm2 (0.919) / T-score (-0.7) / Z-score (0.1) Right Femoral Neck: g/cm2 (0.862) / T-score (-1.3) / Z-score (-0.1) The T-Scores on the most recent prior examination were: Lumbar Spine (L1-L4): There has been improvement of bone density since the previous examination. Left Femur Total: which represents a worsening of 3.6%. Right Femur Total: which represents an improvement of 1.7%. BD/Dexa Bone Density Study IMPRESSION: The patient is considered osteopenic as outlined below according to World [employer] Organization (WHO) criteria with a moderate fracture risk. There has been improvement of bone density since the previous examination. Reference Information: The T-score is the number of standard deviations above or below the standard which is normal for young adults at their peak bone mineral density. The World Health Organization (WHO) interprets the T-scores as follows: Above -1 Normal bone density Between -1 and -2.5 Osteopenia Equal to / or below -2.5 Osteoporosis As a practical clinical guideline, osteopenia may be graded as follows: Mild -1 through -1.5 Moderate -1.6 through -2.0 Severe -2.1 through -2.4 The Z-score is the number of standard deviations above or below age-matched controls. A Z-score of less than -1.5 would be considered abnormal. References: 1. NIH Osteoporosis and Related Bone Diseases http://www.osteo.org 2. International Society for Clinical Densitometry http://www.iscd.org 3. National Osteoporosis Foundation http://www.nof.org Electronically Signed: Raul Grimaldo, at 15:00 EDT , Service support ,
--- NOTE | 2020-05-17 12:45 | BI_ITS ---
MAMMOGRAPHY - BILATERAL SCREENING REASON FOR EXAM: Female, 60 years old. Routine annual screening examination. PERTINENT HISTORY: Grandmother with breast cancer. TECHNIQUE: Digital bilateral breast randall (3D mammographic acquisition) in the CC and MLO projections. 2-D mediolateral oblique (MLO) and craniocaudad (CC) views of both breasts were obtained. CAD: Full Field Digital Mammography with Computer Added Detection was performed. COMPARISON: Comparison is made with prior study dated 11/02/2017 and generally 2016. FINDINGS: Breast Composition: The breasts are heterogeneously dense, which may obscure small masses. There are no dominant masses or suspicious calcifications. The previously seen 1.2 cm nodule in the upper lateral aspect of the right breast is not seen at this time. No other significant abnormalities are identified. BI/SCREEN MAMM (CAD) W/RANDALL BILAT IMPRESSION: Stable bilateral screening mammogram. Yearly follow-up mammogram recommended. (A) ASSESSMENT CATEGORY: BIRADS Category 2: Benign. A letter regarding these results will be sent to the patient by the facility within 30 days. Approximately 10% of breast cancers are not detected by mammography. A normal mammogram should not delay biopsy of a clinically suspicious abnormality. [id number] Electronically Signed: Raul Grimaldo, at 13:54 EDT , Service support ,
== END | disposition home or self-care (01) ==
LOC: OPBD 12:28
PROVIDERS: PCP Nurse Practitioner; Referring Provider Nurse Practitioner; Visit Provider Nurse Practitioner
DX: Z78.0 Asymptomatic menopausal state (principal); Z12.31 Encounter for screening mammogram for malignant neoplasm of breast
CPT/HCPCS: 77063; 77067; 77080

== ENCOUNTER → 2021-06-11 | Outpatient (CLI) | payer OTHER, SELFPAY | END | disposition home or self-care (01) | LOC: LABSPEC 15:20 | PROVIDERS: PCP Nurse Practitioner; Referring Provider Physician Assistant Surgical; Visit Provider Physician Assistant Surgical | DX: U07.1 COVID-19 (principal); R05 Cough | CPT/HCPCS: 87635; U0005; U0003 ==

== ENCOUNTER → 2022-04-04 | Outpatient (CLI) | payer OTHER, SELFPAY ==
[2022-04-04 12:15] LABS: Absolute Lymphocyte Count 2.68 X10^3/uL (0.83-4.51); Absolute Neutrophil Count 2.2 X10^3/uL (2.0-7.7); Basophil# 0.03 X10^3/uL; Basophil% 0.5 % (0-1); Eosinophils% 1.8 % (0-5); Hematocrit 42.8 % (37-47); Hemoglobin 13.8 g/dL (12.0-15.0); Lymphocyte # 2.68 X10^3/ul (0.83-4.51); Lymphocyte % 48.6 % (19-41); Mean Corp Hgb Conc 32.2 g/dL (32-36); Mean Corpuscular Hgb 30.9 pg (27.0-32.0); Mean Platelet Vol. 8.9 fl (6.2-12.0); Monocyte% 9.1 % (0-10); NRBC Flagged by Analyzer 0 % (0-5); Neutrophil # 2.19 X10^3/uL (2.7-7.7); Neutrophil % 39.8 % (47-70); Platelet Count 249 K/mm3 (150-450); RBC Distribution Width CV 12.3 % (11.6-14.6); RBC Distribution Width SD 43.7 fl (35.1-43.9); Red Blood Count 4.46 M/mm3 (4.2-5.4); White Blood Count 5.5 K/mm3 (4.4-11.0)
[2022-04-04 12:22] LABS: ALB/GLOB Ratio 1.1 RATIO (0.9-2.4); AST(SGOT) 22 U/L (15-37); Alanine Aminotransfer ALT/SGPT 28 U/L (13-56); Albumin, Serum 3.8 g/dL (3.2-5.0); Alkaline Phosphatase 84 U/L (45-117); Anion Gap 4 (5-15); BUN 14 mg/dL (7-18); BUN/Creat Ratio 19.6 RATIO (10-20); Calcium,Total 8.9 mg/dL (8.5-10.1); Chloride 107 mmol/L (98-107); Cholesterol 232 mg/dL (200); Creatinine, Serum 0.72 mg/dL (0.55-1.02); EST Glomerular Filtration Rate 88 mL/min (>60); Est Glom Filt Rate - Afr Amer 107 mL/min (>60); Globulin 3.6 g/dL (2.2-4.2); Glucose 94 mg/dL (74-106); High Density Lipoprotein 52 mg/dL; Potassium 3.9 mmol/L (3.5-5.1); Protein, Total 7.4 g/dL (6.4-8.2); Sodium Level 141 mmol/L (136-145); Triglycerides 214 mg/dL; Very Low Density Lipoprotein 43 mg/dL (5-40)
== END | disposition home or self-care (01) ==
LOC: BIMLAB 09:34
PROVIDERS: PCP Internal Medicine; Referring Provider Internal Medicine; Visit Provider Internal Medicine
DX: I10 Essential (primary) hypertension (principal); Z13.6 Encounter for screening for cardiovascular disorders
CPT/HCPCS: 36415; 80053; 80061; 85025

== ENCOUNTER → 2022-04-18 | Outpatient (CLI) | payer OTHER, SELFPAY ==
--- NOTE | 2022-04-18 13:15 | BI_ITS ---
MAMMOGRAPHY - BILATERAL SCREENING REASON FOR EXAM: Female, 62 years old. Routine annual screening examination. PERTINENT HISTORY: Grandmother with breast cancer. TECHNIQUE: Digital bilateral breast randall (3D mammographic acquisition) in the CC and MLO projections. 2-D mediolateral oblique (MLO) and craniocaudad (CC) views of both breasts were obtained. CAD: Full Field Digital Mammography with Computer Added Detection was performed. COMPARISON: Comparison is made with prior study dated 05/17/2020 and 11/02/2017. FINDINGS: Breast Composition: The breasts are heterogeneously dense, which may obscure small masses. There are no dominant masses or suspicious calcifications. Stable small benign appearing bilateral axillary lymph nodes. No other significant abnormalities are identified. There has been no significant change since the prior study. BI/SCRN MAMM (CAD)W/RANDALL BILAT IMPRESSION: Stable bilateral screening mammogram. Yearly follow-up mammogram recommended. (A) ASSESSMENT CATEGORY: BIRADS Category 2: Benign. A letter regarding these results will be sent to the patient by the facility within 30 days. Approximately 10% of breast cancers are not detected by mammography. A normal mammogram should not delay biopsy of a clinically suspicious abnormality. [id number] Electronically Signed: Raul Grimaldo MD at 13:57 EDT ,
== END | disposition home or self-care (01) ==
LOC: OPBI 13:14
PROVIDERS: PCP Internal Medicine; Visit Provider Internal Medicine
DX: Z12.31 Encounter for screening mammogram for malignant neoplasm of breast (principal)
CPT/HCPCS: 77063; 77067

== ENCOUNTER → 2023-03-03 | Outpatient (CLI) | payer OTHER, SELFPAY ==
[2023-03-03 12:12] LABS: Absolute Lymphocyte Count 2.67 X10^3/uL (0.83-4.51); Absolute Neutrophil Count 2.4 X10^3/uL (2.0-7.7); Basophil# 0.04 X10^3/uL; Basophil% 0.7 % (0-1); Eosinophil# 0.09 X10^3/uL; Eosinophils% 1.6 % (0-5); Hematocrit 43.5 % (37-47); Hemoglobin 13.7 g/dL (12.0-15.0); Lymphocyte # 2.67 X10^3/ul (0.83-4.51); Lymphocyte % 47.4 % (19-41); Mean Corp Hgb Conc 31.5 g/dL (32-36); Mean Corpuscular Hgb 30.9 pg (27.0-32.0); Mean Corpuscular Volume 98.2 fL (81-99); Monocyte# 0.41 X10^3/uL; Monocyte% 7.3 % (0-10); NRBC Flagged by Analyzer 0 % (0-5); Neutrophil # 2.41 X10^3/uL (2.7-7.7); Neutrophil % 42.8 % (47-70); Platelet Count 272 K/mm3 (150-450); RBC Distribution Width CV 12.6 % (11.6-14.6); RBC Distribution Width SD 45.9 fl (35.1-43.9); Red Blood Count 4.43 M/mm3 (4.2-5.4); White Blood Count 5.6 K/mm3 (4.4-11.0)
[2023-03-03 12:25] LABS: ALB/GLOB Ratio 0.9 RATIO (0.9-2.4); AST(SGOT) 21 U/L (15-37); Alanine Aminotransfer ALT/SGPT 24 U/L (13-56); Albumin, Serum 3.6 g/dL (3.2-5.0); Alkaline Phosphatase 86 U/L (45-117); Anion Gap 3 (5-15); BUN 15 mg/dL (7-18); BUN/Creat Ratio 21.4 RATIO (10-20); Calcium,Total 8.9 mg/dL (8.5-10.1); Chloride 109 mmol/L (98-107); Cholesterol 201 mg/dL (200); EST Glomerular Filtration Rate 90 mL/min (>60); Est Glom Filt Rate - Afr Amer 109 mL/min (>60); Globulin 3.8 g/dL (2.2-4.2); Glucose 97 mg/dL (74-106); High Density Lipoprotein 52 mg/dL; Potassium 4.8 mmol/L (3.5-5.1); Protein, Total 7.4 g/dL (6.4-8.2); Sodium Level 141 mmol/L (136-145); Triglycerides 127 mg/dL; Very Low Density Lipoprotein 25 mg/dL (5-40)
== END | disposition home or self-care (01) ==
LOC: BIMLAB 09:02
PROVIDERS: PCP Internal Medicine; Referring Provider Internal Medicine; Visit Provider Internal Medicine
DX: I10 Essential (primary) hypertension (principal); E78.2 Mixed hyperlipidemia
CPT/HCPCS: 36415; 80053; 80061; 85025

== ENCOUNTER → 2023-04-21 | Outpatient (CLI) | payer OTHER, SELFPAY ==
--- NOTE | 2023-04-21 08:48 | BI_ITS ---
MAMMOGRAPHY - BILATERAL SCREENING REASON FOR EXAM: Female, 63 years old. Routine annual screening examination. PERTINENT HISTORY: Grandmother with breast cancer. Remote right breast aspiration. TECHNIQUE: Digital bilateral breast randall (3D mammographic acquisition) in the CC and MLO projections. 2-D mediolateral oblique (MLO) and craniocaudad (CC) views of both breasts were obtained. CAD: Full Field Digital Mammography with Computer Added Detection was performed. COMPARISON: Comparison is made with prior study dated April 18, 2022 and May 17, 2020. FINDINGS: Breast Composition: The breasts are heterogeneously dense, which may obscure small masses. There are no dominant masses or suspicious calcifications. Stable small benign appearing bilateral axillary lymph nodes. No other significant abnormalities are identified. There has been no significant change since the prior study. BI/SCRN MAMM (CAD)W/RANDALL BILAT IMPRESSION: Stable bilateral screening mammogram. Yearly follow-up mammogram recommended. (A) ASSESSMENT CATEGORY: BIRADS Category 2: Benign. A letter regarding these results will be sent to the patient by the facility within 30 days. Approximately 10% of breast cancers are not detected by mammography. A normal mammogram should not delay biopsy of a clinically suspicious abnormality. [id number] Electronically Signed: Raul Grimaldo MD at 10:49 EDT ,
== END | disposition home or self-care (01) ==
LOC: OPBI 08:47
PROVIDERS: PCP Internal Medicine; Referring Provider Internal Medicine; Visit Provider Internal Medicine
DX: Z12.31 Encounter for screening mammogram for malignant neoplasm of breast (principal); Z80.3 Family history of malignant neoplasm of breast
CPT/HCPCS: 77063; 77067

== ENCOUNTER 2023-06-26 13:00 | Outpatient (RCR) | payer OTHER, SELFPAY ==
--- NOTE | 2023-05-12 11:34 | HP.PTEVAL_ITS ---
Patient's Visit Information Visit Information Visit Information: DEZ OVERTON is a 63 year old F referred to Physical Therapy by Dr. Zane Wyman DPM with a diagnosis of PLANTAR FASCIAL FIBROMATOSIS. Date of Evaluation: 05/12/23 Physical Therapist: Chase Crane, PT, Cert MDT, OCS Visit Plan Frequency: 2x /Week Duration: 4 Weeks Plan: PT INTERVETIONS US , STETCHING PLANTARFASCIA /CALF ,MANUAL THERAPY STM/STICK CALF AND PLANTARFASCIA Subjective Subjective: This 63 y/o female presents to physical therapy with right plantar fasciitis. Patient has had plantar fascia pain for ~ 1 year. Seen Shock wave therapy. Patient was provided with orthotics power step. Patient has had 2 cortisone injection. Patient has boot night splint at night. Patient denies paresthesia/tingling. Location of pain calcaneus and plantar fascia. Patient aggravating standing/walking then sitting described as toothache. Alleviating factors ex's. Patient pain can affects. Patient condition affects function/ADL and work. Patient goals to decrease pain. SOCIAL: VOCATION: [employer] Pain Right Foot: Pain Intensity (Out of 10): 6 Pain Intensity Range: 10 Objective Objective: POSTURE: (frontal plane mechanics ) pes planus calcaneal valgus PALAPTION: very tender calf ,mild plantarfascia GAIT: reciprocal pattern mild antalgic gait right side NEURO: denies paresthesia/tingling , reflexes L3-4,L4-5,L5-S1 1/3 AROM: dorsiflexion 5 degrees ,plantar flexion 60 degrees ,inversion 35 degrees ,eversion 10 degrees MMT ANKLE: dorsiflexion 4/5 ,G-S 5/5 ,peroneus 4/5 ,posterior tibialis 4/5 Balance/Special Test Scores Lower Extremity Functional Score: 42 Goals Goal 1:: Patient to be I with HEP for foot pain. Goal Time Frame: 4-6 Weeks Goal 2:: Patient to normalize gait pattern. Goal Time Frame: 4-6 Weeks Goal 3:: Patient will demonstrate 50% improvement with decrease pain and improved function with gait Goal Time Frame: 4-6 Weeks Goal 4:: Patient to improve improve LFES score by 5 points or> to improve Goal Time Frame: 4-6 Weeks Goal 5:: Patient to have min to no tenderness of calf and PF for gait Goal Time Frame: 4-6 Weeks Goal 6:: Patient be able to return to extended walking/standing with improvement with ADLS and function Goal Time Frame: 4-6 Weeks Rehabilitation Potential Physical Therapy Diagnosis: This plantar fascial pain with severe tenderness of calf with pain with walking and standing and lingers with sitting described as ache thus benefit from skilled PT . Rehabilitation Potential: Good Anticipated Interventions Patient/Client Instruction: Educate patient on: Condition and Plan of Care For the Purpose of:: To decrease pain, To increase ROM, To improve muscle performance and motor function, To increase tolerance to activity/condition/position, To improve ability of physical actions for home/community/work/leisure, To improve health of tissue, To decrease soft tissue restriction and To increase flexibility/ROM Therapeutic Exercise to Include: Strength training, Balance training, Flexibilty training, Passive ROM and Active ROM For the Purpose of:: To decrease pain, To increase ROM, To increase oxygenation perfusion, To increase tolerance to activity/condition/position, To improve a bility of physical actions for home/community/work/leisure, To improve health of tissue and To decrease soft tissue restriction Manual Therapy Techniques to Include: Mobilization and Soft tissue mobilization For the Purpose of:: To decrease pain, To increase ROM, To improve muscle performance and motor function, To improve ability to perform ADL's, To increase tolerance to activity/condition/position, To improve ability of physical actions for home/community/work/leisure, To improve gait and locomotor functions, To improve health of tissue and To decrease soft tissue restriction TENS: Yes IF ES: Yes Cryotherapy (ice pack, ice massage): Yes Thermo therapy (hot pack): Yes Ultrasound (thermal/non thermal): Yes For the Purpose of:: To decrease pain, To increase ROM, To improve nutrient delivery to tissue, To increase oxygenation perfusion, To improve health of tissue and To decrease soft tissue restriction Text: Thank you for the opportunity to evaluate your patient. For Medicare and Medicare HMO plans, please review the plan of care and approve it. It will need to be FAXED BACK to us at [phone] for Medicare purposes. For Medicare only, by signing this I certify the plan of care. Please let me know if there are questions or concerns regarding this plan of care. Physician Signature: Date:
== END 2023-06-26 19:00 | disposition home or self-care (01) ==
LOC: PT 13:00
PROVIDERS: PCP Internal Medicine; Referring Provider Podiatrist; Visit Provider Podiatrist
DX: M72.2 Plantar fascial fibromatosis (principal)
CPT/HCPCS: 97014; 97035; 97110; 97140; 97161; G0283

== ENCOUNTER → 2023-07-15 | Outpatient (CLI) | payer OTHER, SELFPAY ==
--- NOTE | 2023-07-15 07:00 | MRI_ITS ---
EXAM: MR RIGHT LOWER EXTREMITY WITHOUT INTRAVENOUS CONTRAST, ANKLE CLINICAL INDICATION: PLANTAR FASCITIS TECHNIQUE: Multiplanar and multisequence MR images of the right ankle without intravenous contrast. COMPARISON: No relevant prior studies available. FINDINGS: LIGAMENTS: ANTERIOR TALOFIBULAR: Not well seen and likely is chronically disrupted with no adjacent soft tissue edema. POSTERIOR TALOFIBULAR: Unremarkable. Intact. ANTERIOR TIBIOFIBULAR: Unremarkable. Intact. POSTERIOR TIBIOFIBULAR: Unremarkable. Intact. CALCANEOFIBULAR: Unremarkable. Intact. DELTOID: Unremarkable. Intact. SPRING: Unremarkable. Intact. LISFRANC: Unremarkable. Intact. TENDONS: ACHILLES: Unremarkable. Intact. FLEXOR: Unremarkable. Intact. EXTENSOR: Unremarkable. Intact. PERONEAL: There appears to be a split tear of the peroneus brevis tendon beginning at the myotendinous junction extending distally where the 2 split tendons never appear to re-join. TIBIALIS ANTERIOR: Unremarkable. Intact. TIBIALIS POSTERIOR: Unremarkable. Intact. MUSCLES: Unremarkable. Normal bulk and signal. FLUID: Unremarkable. No significant joint effusion throughout the exam. No bursitis. SINUS TARSI: Unremarkable. Normal fat in the sinus tarsi. TARSAL TUNNEL: Unremarkable. PLANTAR FASCIA: At least moderate fusiform thickening of the central cord of plantar aponeurosis with adjacent fluid signal is suggestive of active plantar fasciitis. There is also focal marrow edema involving the plantar calcaneal spur at the calcaneal attachment of the central cord. CARTILAGE: Unremarkable. No osteochondral lesion. Articular cartilage intact. BONES/JOINTS: See above. OTHER SOFT TISSUES: Subcutaneous edema identified medial and laterally. VASCULATURE: Vasculature element likely corresponds to the focal marrow signal alteration at the the anterior calcaneus below the angle of Gissane. OTHER FINDINGS: Peroneal tenosynovitis is mild. MRI/Lower Ext Joint Only (Routine) IMPRESSION: 1. Findings are compatible with the clinical diagnosis of active plantar fasciitis. 2. Long segment peroneus brevis tendon split tear. 3. 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 Electronically Signed: Timi Alexandra MD at 22:31 EDT Reading Location ID and State: [address] [place] [address] Tel , Service support ,
== END | disposition home or self-care (01) ==
LOC: MRI 07:50
PROVIDERS: PCP Internal Medicine; Referring Provider Podiatrist; Visit Provider Podiatrist
DX: M72.2 Plantar fascial fibromatosis (principal)
CPT/HCPCS: 73721

== ENCOUNTER → 2024-04-12 | Outpatient (CLI) | payer OTHER, SELFPAY ==
[2024-04-12 11:53] LABS: Absolute Lymphocyte Count 2.56 X10^3/uL (0.83-4.51); Absolute Neutrophil Count 2.5 X10^3/uL (2.0-7.7); Basophil# 0.03 X10^3/uL; Basophil% 0.5 % (0-1); Eosinophil# 0.09 X10^3/uL; Eosinophils% 1.6 % (0-5); Hematocrit 43.5 % (37-47); Hemoglobin 13.9 g/dL (12.0-15.0); Lymphocyte # 2.56 X10^3/ul (0.83-4.51); Lymphocyte % 44.9 % (19-41); Mean Corpuscular Hgb 30.7 pg (27.0-32.0); Mean Platelet Vol. 8.9 fl (6.2-12.0); Monocyte# 0.51 X10^3/uL; Monocyte% 8.9 % (0-10); NRBC Flagged by Analyzer 0 % (0-5); Neutrophil # 2.49 X10^3/uL (2.7-7.7); Neutrophil % 43.7 % (47-70); Platelet Count 254 K/mm3 (150-450); RBC Distribution Width CV 12.6 % (11.6-14.6); RBC Distribution Width SD 44.8 fl (35.1-43.9); Red Blood Count 4.53 M/mm3 (4.2-5.4); White Blood Count 5.7 K/mm3 (4.4-11.0)
[2024-04-12 12:46] LABS: AST(SGOT) 20 U/L (15-37); Alanine Aminotransfer ALT/SGPT 24 U/L (13-56); Albumin, Serum 3.8 g/dL (3.2-5.0); Alkaline Phosphatase 72 U/L (45-117); Anion Gap 5 (5-15); BUN 16 mg/dL (7-18); BUN/Creat Ratio 22.6 RATIO (10-20); Calcium,Total 9.1 mg/dL (8.5-10.1); Chloride 106 mmol/L (98-107); Cholesterol 208 mg/dL (200); Creatinine, Serum 0.71 mg/dL (0.55-1.02); EST Glomerular Filtration Rate 89 mL/min (>60); Est Glom Filt Rate - Afr Amer 108 mL/min (>60); Globulin 3.7 g/dL (2.2-4.2); Glucose 101 mg/dL (74-106); High Density Lipoprotein 52 mg/dL; Potassium 4.2 mmol/L (3.5-5.1); Protein, Total 7.5 g/dL (6.4-8.2); Sodium Level 139 mmol/L (136-145); Triglycerides 125 mg/dL; Very Low Density Lipoprotein 25 mg/dL (5-40)
== END | disposition home or self-care (01) ==
LOC: BIMLAB 09:47
PROVIDERS: PCP Internal Medicine; Referring Provider Nurse Practitioner; Visit Provider Nurse Practitioner
DX: I10 Essential (primary) hypertension (principal)
CPT/HCPCS: 36415; 80053; 80061; 85025

== ENCOUNTER → 2024-04-22 | Outpatient (CLI) | payer OTHER, SELFPAY ==
--- NOTE | 2024-04-22 08:03 | BI_ITS ---
MAMMOGRAPHY - BILATERAL SCREENING REASON FOR EXAM: Female, 64 years old. Routine annual screening examination. PERTINENT HISTORY: Grandmother with breast cancer. Remote right breast aspiration. TECHNIQUE: Digital bilateral breast randall (3D mammographic acquisition) in the CC and MLO projections. 2-D mediolateral oblique (MLO) and craniocaudad (CC) views of both breasts were obtained. CAD: Full Field Digital Mammography with Computer Added Detection was performed. COMPARISON: Comparison is made with prior study April 21, 2023 and April 18, 2022. FINDINGS: Breast Composition: The breasts are heterogeneously dense, which may obscure small masses. Asymmetrical breast tissue in the upper slightly medial aspect of the left breast. The patient will be recalled for additional compression views and 90 degree lateral. No other significant abnormalities are identified. BI/SCRN MAMM (CAD)W/RANDALL BILAT IMPRESSION: Asymmetrical breast tissue in the upper slightly medial aspect of the left breast. The patient will be recalled for additional views including 90 degree lateral and compression spot views. ASSESSMENT CATEGORY: BIRADS Category 0: Incomplete. Need additional imaging evaluation. A letter regarding these results will be sent to the patient by the facility within 30 days. Approximately 10% of breast cancers are not detected by mammography. A normal mammogram should not delay biopsy of a clinically suspicious abnormality. [id number] Electronically Signed: Raul Grimaldo MD at 9:48 EDT ,
== END | disposition home or self-care (01) ==
LOC: OPBI 08:02
PROVIDERS: PCP Internal Medicine; Referring Provider Nurse Practitioner; Visit Provider Nurse Practitioner
DX: Z12.31 Encounter for screening mammogram for malignant neoplasm of breast (principal)
CPT/HCPCS: 77063; 77067

== ENCOUNTER → 2024-04-28 | Outpatient (CLI) | payer OTHER, SELFPAY ==
--- NOTE | 2024-04-28 14:29 | BI_ITS ---
MAMMOGRAPHY - UNILATERAL DIAGNOSTIC: LEFT BREAST REASON FOR EXAM: Female, 64 years old. ABN MAMM PERTINENT HISTORY: Non-contributory. TECHNIQUE: Digital examination. Mediolateral oblique (MLO) and craniocaudad (CC) views of the breast were obtained. CAD: CAD was not performed on this study. COMPARISON: 04/22/2024 FINDINGS: Breast Composition: The breasts are heterogeneously dense, which may obscure small masses. Focal compression views do not confirm a mass in the upper quadrant of the left breast likely consistent with normal breast parenchyma. No other significant abnormalities are identified. BI/DIAG MAMM W/CAD, UNILAT IMPRESSION: Stable unilateral diagnostic mammogram. Nevertheless, ultrasound will be obtained. ASSESSMENT CATEGORY: BIRADS Category 0: Incomplete. Need additional imaging evaluation. A letter regarding these results will be sent to the patient by the facility within 30 days. FOLLOW-UP RECOMMENDATION: Ultrasound recommended. (I) Approximately 10% of breast cancers are not detected by mammography. A normal mammogram should not delay biopsy of a clinically suspicious abnormality. Electronically Signed: Louis Duenas MD at 13:56 EDT ,
--- NOTE | 2024-04-28 14:34 | US_ITS ---
STUDY: ULTRASOUND BREAST - LEFT REASON FOR EXAM: Female, 64 years old. Abnormal screening mammogram. TECHNIQUE: Axial and longitudinal images of the LEFT breast were performed with a high resolution ultrasound transducer. # OF IMAGES: 33 COMPARISON: Diagnostic mammogram earlier today, screening mammogram 04/22/2024 FINDINGS: LEFT Breast: Heterogeneous background echotexture. Multiple longitudinal and transverse ultrasound images of the upper inner quadrant of the left breast do not demonstrate a discrete solid or cystic mass most consistent with normal breast parenchyma.: US/Breast Limited Unilateral IMPRESSION: Normal breast ultrasound. ASSESSMENT CATEGORY: BIRADS Category 1: Negative. A letter regarding these results will be sent to the patient by the facility within 30 days. Electronically Signed: Louis Duenas MD at 11:02 EDT ,
== END | disposition home or self-care (01) ==
PROVIDERS: PCP Internal Medicine; Referring Provider Nurse Practitioner; Visit Provider Nurse Practitioner
DX: N64.89 Other specified disorders of breast (principal)
CPT/HCPCS: 76642; 77065

== ENCOUNTER → 2025-04-13 | Outpatient (CLI) | payer OTHER, SELFPAY ==
[2025-04-13 12:36] LABS: Hematocrit 42.4 % (37-47); Hemoglobin 14.1 g/dL (12.0-15.0); Immature Granulocytes Count 0.020 X10^3/uL (0.0-0.0); Mean Corp Hgb Conc 33.3 g/dL (32-36); Mean Corpuscular Volume 94.2 fL (81-99); Mean Platelet Vol. 8.7 fl (6.2-12.0); NRBC Flagged by Analyzer 0 % (0-5); Platelet Count 237 K/mm3 (150-450); RBC Distribution Width CV 12.7 % (11.6-14.6); RBC Distribution Width SD 44.3 fl (35.1-43.9); Red Blood Count 4.50 M/mm3 (4.2-5.4); White Blood Count 5.7 K/mm3 (4.4-11.0)
[2025-04-13 13:09] LABS: AST(SGOT) 24 U/L (<=31); Alanine Aminotransfer ALT/SGPT 21 U/L (<=34); Albumin, Serum 4.3 g/dL (3.4-4.8); Alkaline Phosphatase 69 U/L (35-104); Anion Gap 10 (5-15); BUN 13 mg/dL (4-19); BUN/Creat Ratio 19.9 RATIO (10-20); Calcium,Total 9.2 mg/dL (7.6-11.0); Carbon Dioxide 25.3 mmol/L (21.0-32.0); Chloride 105 mmol/L (98-108); Cholesterol 240 mg/dL (<=200); Globulin 3.1 g/dL (2.2-4.2); Glucose 98 mg/dL (70-99); Low Density Lipoprotein Calc. 146 mg/dL; Magnesium 2.1 mg/dL (1.5-2.2); Potassium 4.8 mmol/L (3.3-5.1); Triglycerides 184 mg/dL; Very Low Density Lipoprotein 37 mg/dL (5-40); Vitamin B12 602 pg/mL (180-914); Vitamin D,25 Hydroxy 32.8 ng/mL (30-100); cholesterol:hdl ratio screen 4.17
== END | disposition home or self-care (01) ==
LOC: BIMLAB 10:48
PROVIDERS: PCP Internal Medicine; Referring Provider Internal Medicine; Visit Provider Internal Medicine
DX: E66.811 Obesity, class 1 (principal); R53.83 Other fatigue; I10 Essential (primary) hypertension; Z13.6 Encounter for screening for cardiovascular disorders
CPT/HCPCS: 36415; 80053; 80061; 82306; 82607; 83036; 83735; 84443; 85025

== ENCOUNTER → 2025-05-08 | Outpatient (CLI) | payer OTHER, SELFPAY ==
--- NOTE | 2025-05-08 12:45 | BI_ITS ---
EXAM: SCRN MAMM (CAD)W/RANDALL BILAT DATE: 05/08/2025 CLINICAL HISTORY: F, Age 65 y/o , SCREENING TECHNIQUE: SCRN MAMM (CAD)W/RANDALL BILAT COMPARISON: Prior exam(s) dated 04/28/2024, 04/22/2024, and 04/21/2023. FINDINGS: TISSUE DENSITY: There are scattered areas of fibroglandular density. Bilateral Breast Mammographic Findings: Benign-appearing vascular calcifications are seen in both breasts. Stable benign-appearing 4 mm partially obscured isodense mass in the superior, far posterior aspect of the right breast is noted. This mass appears to be located laterally on the randall images. It appears to have a fatty hilum. It is most compatible with an intramammary lymph node. No suspicious masses, suspicious clustered microcalcifications, architectural distortion or secondary signs of malignancy is identified in either breast. BI/SCRN MAMM (CAD)W/RANDALL BILAT IMPRESSION: Benign screening mammogram. OVERALL FINAL ASSESSMENT BI-RADS 2: BENIGN RECOMMENDATION: Routine annual follow-up in 1 Year A letter with findings and recommendations will be mailed to the patient. Reading Location: [id number]
== END | disposition home or self-care (01) ==
LOC: OPBI 12:38
PROVIDERS: PCP Internal Medicine; Referring Provider Internal Medicine; Visit Provider Internal Medicine
DX: Z12.31 Encounter for screening mammogram for malignant neoplasm of breast (principal)
CPT/HCPCS: 77063; 77067

== ENCOUNTER → 2025-06-21 | Outpatient (CLI) | payer OTHER, SELFPAY ==
--- NOTE | 2025-06-21 10:49 | RAD_ITS ---
PROCEDURE: ANKLE MIN 3 VIEWS 06/21/2025 REASON FOR EXAM: ANKLE INJURY TECHNIQUE: Procedure Code: RADANK Modality: DX Procedure: ANKLE MIN 3 VIEWS Right ankle three views COMPARISON: None FINDINGS: There is no fracture or dislocation identified. The ankle mortise is not widened. Joint spaces are maintained. Soft tissue swelling is noted at the medial and lateral malleolus. A benign-appearing calcaneal spur is noted. RAD/Ankle min 3 Views IMPRESSION: Soft tissue swelling is noted at the medial and lateral malleolus. Reading Location: [facility]
--- NOTE | 2025-06-21 10:49 | RAD_ITS ---
PROCEDURE: ANKLE MIN 3 VIEWS 06/21/2025 REASON FOR EXAM: ANKLE INJURY TECHNIQUE: Procedure Code: RADANK Modality: DX Procedure: ANKLE MIN 3 VIEWS Right ankle three views COMPARISON: None FINDINGS: There is no fracture or dislocation identified. The ankle mortise is not widened. Joint spaces are maintained. Soft tissue swelling is noted at the medial and lateral malleolus. A benign-appearing calcaneal spur is noted. RAD/Ankle min 3 Views IMPRESSION: Soft tissue swelling is noted at the medial and lateral malleolus. Reading Location: [facility]
== END | disposition home or self-care (01) ==
LOC: MTRAD 10:49
PROVIDERS: PCP Internal Medicine; Referring Provider Physician Assistant; Visit Provider Physician Assistant
DX: S99.911A Unspecified injury of right ankle, initial encounter (principal)
CPT/HCPCS: 73610